=== PATIENT | male | born 2000 | race Caucasian/White ===

== ENCOUNTER 2020-01-19 19:44 | Emergency (ER) | payer OTHER, SELFPAY ==
--- NOTE | ~2020-01-19 | XR_ITS ---
EXAMINATION: XR knee LT 2V DATE: 01/19/2020 20:55 INDICATION: Left knee injury. Left knee pain. TECHNIQUE: 2 views of left knee were obtained. COMPARISON: None. FINDINGS: Bone alignment is normal. No fracture. Joint spaces are well maintained. There is a small k nee joint effusion. IMPRESSION: 1. Small left knee joint effusion. Reviewed, dictated and finalized at location A.
[2020-01-19 19:56] VITALS: BP 141/81; PULSE 94; RESP 13; TEMP 36.8; O2SAT 99
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
[2020-01-19 21:24] VITALS: PULSE 90; RESP 14; O2SAT 99
== END 2020-01-19 21:31 | disposition home or self-care (01) ==
PROVIDERS: Emergency Provider Emergency Medicine
DX: S86.912A Strain of unspecified muscle(s) and tendon(s) at lower leg level, left leg, initial encounter (principal); W17.89XA Other fall from one level to another, initial encounter
CPT/HCPCS: 73560; 99282; 99283

== ENCOUNTER 2020-05-01 18:46 | Emergency (ER) | payer OTHER, SELFPAY ==
[2020-05-01 18:55] VITALS: BP 138/72; PULSE 76; RESP 16; TEMP 36.9; O2SAT 97
--- NOTE | 2020-05-01 19:29 | ED.EYEPROB ---
HPI - Eye Problem General Chief complaint: Eye Problems Stated complaint: eye problem Source: patient Mode of arrival: ambulatory Limitations: no limitations History of Present Illness HPI Narrative: This 20-year-old was mowing around noon today when he felt a foreign body in his right eye. He wiped it out with resolution of his symptoms. Approximately 5-1/2 hours later, while taking a shower, he had acute pain in the right medial eye. The pain is made worse by closing his eye. He has no blurring or photophobia. The pain is sharp, moderate- severe. There is no blurring. Related Data Allergies Allergy/AdvReac Type Severity Reaction Status Date / Time Penicillins Allergy Intermediate Verified 12/22/16 13:39 Review of Systems Eyes: Eyes: Reports no additional eye complaints PMFSH Past Medical History Medical History Patient denies medical problems Social History Social History Smoking status: Current every day smoker Alcohol intake: never Substance use type: marijuana Exam Eyes: Pupils: Equal, round and reactive pupils present Other: Right diffuse conjunctival injection. EOMI. EOMI 20/20 OD, 20/25 OS obtained after anesthetic applied. Cornea is clear with a sharp light reflex. Fluorescein exam revealed no corneal uptake. Upper eyelid inverted, upper and lower palpebral conjunctiva thoroughly inspected Course Course Emergency Course: Pt. held eyelids apart because of pain when his eyelids are closed. Pt's external lid, eyelid margin, palpebral and bulbar conjunctiva repeatedly examined. No other findings then what is described above. Vital Signs Vital signs: Vital Signs Temperature 36.9 C 05/01/20 18:55 Pulse Rate 76 05/01/20 18:55 Respiratory Rate 16 05/01/20 18:55 Blood Pressure 138/72 05/01/20 18:55 Pulse Oximetry 97 05/01/20 18:55 Temperature 36.9 C 05/01/20 18:55 Pulse Rate 76 05/01/20 18:55 Respiratory Rate 17 05/01/20 19:45 Blood Pressure 138/72 05/01/20 18:55 Pulse Oximetry 97 05/01/20 18:55 MDM - Eye Problem MDM Narrative Medical decision making narrative: Medial eye pain/ no photophobia or blurring. Hx of foreign body in eye 4 - 5 hours before onset of this pain. No evidence of cornea abrasion or foreign body. I explained to the patient he may have had a foreign body which caused injury and now is gone. Pain markedly improved with topical anesthetic. Pt. declined going to an e.d. who has an posting machine operator available. He does not have his license. Pt. instructed to be seen by an eye doctor tomorrow if pain persists. [place] rx written to get him through the [facility]. Differential Diagnosis Differential diagnosis: Likely corneal abrasion and other (foreign body. ) Discharge Plan Discharge Clinical Impression: Acute right eye pain Patient Disposition: Home, Self-Care Condition: Stable Instructions: Eye Foreign Body (ED) Additional Instructions: If pain persists, see an jig fitter or posting machine operator 05/02/20 [facility] [phone] [address] [place] Prescriptions: New hydrocodone-acetaminophen [[place]] 5-325 mg tablet 1 tablet PO Q4H PRN (Reason: pain) Qty: 6 RF: 0 hydrocodone-acetaminophen [[place]] 5-325 mg tablet 1 tablet PO Q4H PRN (Reason: pain) Qty: 6 RF: 0 Follow-up/Referrals: UNKNOWN,DOCTOR [Primary Care Provider] - Time of Disposition: 19:34 Discharge Date/Time: 05/01/20 19:45
[2020-05-01] MEDS: IBUPROFEN 400 MG TABLET PO (19:34)
[2020-05-01 19:45] VITALS: RESP 17
== END 2020-05-01 19:45 | disposition home or self-care (01) ==
PROVIDERS: Emergency Provider Family Medicine
DX: H57.11 Ocular pain, right eye (principal)
CPT/HCPCS: 99281; 99283; A9270

== ENCOUNTER 2021-06-08 11:30 | Emergency (ER) | payer OTHER, SELFPAY ==
--- NOTE | ~2021-06-08 | CT_ITS ---
EXAMINATION: CT abdomen pelvis w con DATE: 06/08/2021 14:06 INDICATION: Right lower quadrant pain with TECHNIQUE: Computed tomography (CT) of the abdomen and pelvis was performed with 100 cc Omnipaque 350 intravenous contrast. The dose-length product was 314.08 mGy-cm. Automated exposure control and iter ative reconstruction technique were employed. COMPARISON: CT dated 08/20/2019 FINDINGS: Lung bases are unremarkable. Heart size normal. No significant pleural or pericardial effus ion. There is a large amount of gas in the colon. No significant small bowel dilation. No definite ob struction. No significant vascular abnormality. The liver, spleen, pancreas, adrenal glands and kidneys are unremarkable. Gallbladder is present. No free air. Normal appendix. No free air or free fluid. IMPRESSION: 1. Prominent gas throughout the colon, nonspecific. No definite obstruction. Reviewed, dictated and finalized at location A.
[2021-06-08 12:49] VITALS: BP 158/81; PULSE 59; RESP 20; TEMP 36.8; O2SAT 99
[2021-06-08 13:34] LABS: Basophils Absolute Auto 0.07 K/mm3 (0.00-0.10); Basophils Percent Auto 0.8 % (0.0-1.0); Eosinophils Absolute Auto 0.05 K/mm3 (0.02-0.50); Eosinophils Percent Auto 0.6 % (1.0-6.0); Hematocrit 45.3 % (40.0-54.0); Hemoglobin 15.4 g/dL (14.0-18.0); Immature Granulocyte Absolute 0.04 K/mm3 (0.00-0.00); Immature Granulocyte Percent A 0.5 % (0.0-0.0); Lymphocytes Absolute Auto 1.26 K/mm3 (1.10-4.50); Lymphocytes Percent Auto 14.7 % (18.0-42.0); Mean Corpuscular Hemoglobin 30.7 pg (27.0-31.0); Mean Corpuscular Volume 90.4 fL (78.0-102.0); Mean Platelet Volume 9.8 fl (8.7-11.0); Monocytes Absolute Auto 0.58 K/mm3 (0.10-0.90); Monocytes Percent Auto 6.8 % (2.0-11.0); Neutrophils Absolute Auto 6.6 K/mm3 (1.7-7.2); Neutrophils Percent Auto 76.6 % (50.0-70.0); Platelet Count Result 296 K/mm3 (150-420); Red Blood Count 5.01 M/mm3 (4.70-6.10); White Blood Count 8.6 K/mm3 (4.8-10.8)
[2021-06-08] MEDS: SODIUM CHLORIDE 0.9% IV 1,000 ML 999 ML IV CONT (13:38)
[2021-06-08] MEDS: ONDANSETRON INJ 4 MG/2 ML VIAL IV PUSH (13:39)
[2021-06-08] MEDS: MORPHINE SULFATE (*CRX) 2 MG/ML INJ IV PUSH (13:39)
[2021-06-08] MEDS: PANTOPRAZOLE SODIUM IV 40 MG VIAL IV PUSH (13:39)
[2021-06-08 13:49] LABS: Alanine Aminotransferase 36 U/L (16-63); Albumin Level 4.2 g/dL (3.4-5.0); Alkaline Phosphatase 111 U/L (46-116); Anion Gap 10 mmol/L (8-16); Aspartate Amino Transferase 19 U/L (15-37); Bilirubin,Total 0.6 mg/dL (0.00-1.00); Blood Urea Nitrogen 7 mg/dL (7-18); Calcium 8.9 mg/dL (8.5-10.1); Carbon Dioxide 28 mmol/L (21-32); Chloride 104 mmol/L (98-108); Estimated CRCL calculation 99 ml/min; Estimated Glomerular Filt Rate > 60; Ethanol < 3 mg/dL (0-6); Glucose 94 mg/dL (70-99); Lipase 74 U/L (73-393); Osmolality Calculated 292 mOsm/kg (285-295); Potassium 3.9 mmol/L (3.5-5.1); Sodium 142 mmol/L (136-145)
[2021-06-08 14:25] LABS: Add Urine Microscopic? NO; Appearance Urine Clear (Clear); Bilirubin Urine Negative (Negative); Blood Urine Negative (Negative); Color Urine Light Yellow (Yellow); Glucose Urine UA Negative (Negative); Ketones Urine Negative (Negative); Leukocyte Esterase Ur Negative (Negative); Nitrate Urine Negative (Negative); Protein Urine Negative (Negative); Urobilinogen Urine 0.2 mg/dL (0.2-1.0)
[2021-06-08 14:53] LABS: Amphetamine Screen Urine Negative (Negative); Barbiturate Screen Urine Negative (Negative); Benzodiazepines Screen Urine Negative (Negative); Cannabinoid Screen Urine Positive (Negative); Cocaine Screen Urine Negative (Negative); Methadone Screen Urine Negative (Negative); Opiate Screen Urine Positive (Negative); Phencyclidine Screen Urine Negative (Negative)
--- NOTE | 2021-06-08 15:17 | ED.GENADULT ---
HPI - General Adult General Chief complaint: Unspecified Stated complaint: hot,vomiting Time Seen by Provider: 06/08/21 11:45 Source: patient and RN notes reviewed Mode of arrival: ambulatory Limitations: no limitations History of Present Illness complaint: mild epigastric abdominal pain, nausea and vomiting x this am. no fever or Onset (ago): hour(s) (2) Location: abdomen Radiation: non-radiation Severity: mild Severity scale (1-10): 3 Quality: aching and dull Pain Consistency: constant Relieving factors: none Exacerbating factors: none Associated symptoms: nausea/vomiting Related Data Allergies Allergy/AdvReac Type Severity Reaction Status Date / Time Penicillins Allergy Unknown Verified 06/08/21 13:08 Review of Systems Review of Systems: All systems reviewed & are unremarkable except as noted in HPI and below Gastrointestinal: Gastrointestinal: Reports abdominal pain and Reports nausea PMFSH Past Medical History Medical History (Updated 06/08/21 @ 15:48 by Rosa Beasley MD) Gastritis Exam Const: General: cooperative, no acute distress and well developed Nutritional Appearance: well nourished Orientation/consciousness: oriented to person and patient oriented x3 Limitations: no limitations HENMT: Head: normal to inspection, normocephalic and atraumatic Ears: hearing grossly normal bilaterally and external ears normal General nose exam: Normal external nose present and Normal nares present Mouth: Yes oropharynx normal and Yes moist mucous membranes Eyes: General: appearance normal, both eyes and all related structures Eyelids: eyelids normal Conjunctivae: conjunctivae normal Sclera: sclerae normal Cornea: corneas normal Pupils: Equal, round and reactive pupils present EOM: EOMs intact bilaterally Neck: Neck: normal visual inspection, full ROM and no lymphadenopathy Chest: Chest palpation & inspection: normal inspection of the chest Resp: Effort & Inspection: normal respiratory effort Auscultation: clear to auscultation bilaterally Cardio: Jugular venous distension: no JVD Rate: regular rate Rhythm: regular rhythm Heart sounds: S1 normal heart sound present and S2 normal heart sound present Peripheral pulses: Peripheral pulses 2+ throughout and brachial pulses present GI: Inspection: normal to inspection GI Palp: Yes Soft to palpation (non-tender.) Percussion: Yes normal to percussion Auscultation: normal bowel sounds : General: Yes bimanual renal exam normal bilaterally and Yes no CVA tenderness Back/Spine/Pelvis: Back: no CVA tenderness Thoracic/Lumbar Spine: thoracic and lumbar spine normal to inspection Skin: General skin exam: normal color and no rashes or lesions noted Rashes: no rashes Wounds: no wounds Hair: normal Neuro: General: patient oriented x3, gait normal, no focal motor deficits and CN's II-XI intact bilaterally Cranial nerves: Yes CN's II-XII intact bilaterally Cognition (Neuro): normal cognition Speech: normal speech Gait exam (Neuro): Normal gait present Motor exam (neuro): 5/5 motor strength present throughout Extrem: General: normal to inspection, full ROM and capillary refill normal Psych: Appearance: grossly normal and well kempt Speech and movement: Normal speech and movement present Affect: normal affect Thought content: Yes Normal thought content present and No Phobia(s) present Insight: Good insight present (Psych) and no other Judgement: Good judgement present (Psych) Course Course Emergency Course: Pt was stable and pain-free in the ED. no acute GI loss Reevaluation(s) Reevaluation #1: No GI loss in the ED. less painful in the ED Date: 06/08/21 Time: 13:46 Vital Signs Vital signs: Vital Signs Temperature 36.8 C 06/08/21 12:49 Pulse Rate 59 L 06/08/21 12:49 Respiratory Rate 20 06/08/21 12:49 Blood Pressure 158/81 H 06/08/21 12:49 Pulse Oximetry 99 06/08/21 12:49 Temperature 36.8 C 06/08/21 12:49 Pulse Rate
[2021-06-08 15:56] VITALS: BP 144/94; PULSE 48; RESP 20; TEMP 36.4; O2SAT 99
== END 2021-06-08 16:03 | disposition home or self-care (01) ==
PROVIDERS: Emergency Provider Emergency Medicine
DX: K29.70 Gastritis, unspecified, without bleeding (principal)
CPT/HCPCS: 36415; 74177; 80053; 80307; 81003; 83690; 85025; 96361; 96374; 96375; 99283; 99284; C9113; J2270; J2405; J7030; Q9967

== ENCOUNTER 2021-06-25 07:39 | Outpatient (CLI) | payer OTHER, SELFPAY ==
--- NOTE | ~2021-06-25 | US_ITS ---
US abdomen limited DATE: 06/25/2021 08:06 INDICATION: Right abdominal pain TECHNIQUE: Real-time imaging of liver, pancreas, gallbladder COMPARISON: 06/08/2021 CT abdomen pelvis FINDINGS: No hepatic mass lesion is evident. Normal hepatopedal portal venous flow direction. No gallstones or gallbladder wall thickening or pericholecystic fluid. The common bile duct measures 3.5 mm, normal. Negative sonographic Cannon's sign. The pancreas is obscured by bowel gas pattern appears normal on 06/08/2021 CT abdomen pelvis examinati on. IMPRESSION: Negative examination Reviewed, dictated and finalized at Location A. Reviewed, dictated and finalized at location A. IMPRESSION: Negative examination
== END 2021-06-25 07:40 | disposition home or self-care (01) ==
LOC: CHSIMG 07:40
PROVIDERS: PCP Family Medicine; Visit Provider Family Medicine
DX: K80.50 Calculus of bile duct without cholangitis or cholecystitis without obstruction (principal)
CPT/HCPCS: 76705

== ENCOUNTER 2023-01-12 18:56 | Emergency (ER) | payer OTHER, SELFPAY ==
[2023-01-12 19:00] VITALS: BP 125/70; PULSE 78; RESP 18; TEMP 37.1; O2SAT 100
--- NOTE | 2023-01-12 19:11 | ED.URI ---
HPI - URI/Sore Throat General Chief Complaint: Upper Respiratory Infection Stated Complaint: cough Time Seen by Provider: 01/12/23 19:03 Source: patient Mode of arrival: ambulatory Limitations: no limitations History of Present Illness HPI Narrative: this is a 22-year-old male that presents with 2 day history of cough with nasal congestion and postnasal drip with frontal and maxillary sinus pressure with bilateral ear pressure cough is mildly productive of yellow sputum with some no shortness of breath no audible wheezing no sore throat no nausea vomiting or abdominal pain with no fever chills. MD elicited complaint: cough, nasal congestion and sinus pain Onset (ago): day(s) Consistency: constant Severity: mild Description of mucous: yellow Related Data Home Medications Medication Instructions Recorded Confirmed No Home Medications 01/12/23 01/12/23 Allergies Allergy/AdvReac Type Severity Reaction Status Date / Time Penicillins Allergy Unknown Unknown Verified 01/12/23 18:59 Review of Systems Review of Systems: All systems reviewed & are unremarkable except as noted in HPI and below PMFSH Past Medical History Medical History Gastritis Surgical History Surgical History No history of previous surgery Social History Social History Smoking status: Former smoker Alcohol intake: never Substance use type: marijuana Living arrangements: with family Occupation/Education: occupation Exam Const: General: healthy appearing Nutritional Appearance: well nourished Orientation/consciousness: patient oriented x3 Limitations: no limitations HENMT: Other: Frontal and maxillary sinus tenderness with palpation with a postnasal drip bilateral ear pressure and dullness. Eyes: Conjunctivae: conjunctivae normal Chest: Chest palpation & inspection: normal inspection of the chest Resp: Effort & Inspection: normal respiratory effort Cardio: Rate: regular rate Rhythm: regular rhythm GI: GI Palp: Yes Soft to palpation Auscultation: normal bowel sounds : General: Yes bladder normal to palpation Skin: General skin exam: normal color Rashes: no rashes Wounds: no wounds Neuro: General: patient oriented x3 Extrem: General: normal to inspection Psych: Mental Status: mental status grossly normal Affect: normal affect Course Course Emergency Course: After examination of patient patient has some sinus congestion and drainage and will treat with some antibiotics for sinus infection. Vital Signs Vital signs: Vital Signs Temperature 37.1 C 01/12/23 19:00 Pulse Rate 78 01/12/23 19:00 Respiratory Rate 18 01/12/23 19:00 Blood Pressure 125/70 01/12/23 19:00 Pulse Oximetry 100 01/12/23 19:00 Oxygen Delivery Room Air 01/12/23 19:00 Temperature 37.1 C 01/12/23 19:00 Pulse Rate 78 01/12/23 19:00 Respiratory Rate 18 01/12/23 19:00 Blood Pressure 125/70 01/12/23 19:00 Pulse Oximetry 100 01/12/23 19:00 Oxygen Delivery Room Air 01/12/23 19:00 Critical Care Time Critical Care Time Critical Care Time: No Discharge Plan Discharge Clinical Impression: Sinusitis Patient Disposition: Home, Self-Care Condition: Stable Instructions: Antibiotic Form, Sinusitis (ED) Additional Instructions: Take medicine as prescribed, and can take Claritin 10mg [id number] daily for 1 week along with antibiotics and follow up with primary if symptoms persist or worsen. Prescriptions: No Action No Home Medications Follow-up/Referrals: Paulino Tijerina DO [Primary Care Provider] - Time of Disposition: 19:14
[2023-01-12] MEDS: AZITHROMYCIN 250 MG TABLET 500 MG PO (19:15)
== END 2023-01-12 19:27 | disposition home or self-care (01) ==
LOC: CHSED 19:18
PROVIDERS: Emergency Provider Emergency Medicine; PCP Family Medicine
DX: J32.9 Chronic sinusitis, unspecified (principal); Z87.891 Personal history of nicotine dependence
CPT/HCPCS: 99283; A9270

== ENCOUNTER 2023-07-16 19:17 | Emergency (ER) | payer OTHER, SELFPAY ==
--- NOTE | ~2023-07-16 | XR_ITS ---
EXAMINATION: XR chest 2V Exam Date/Time: 07/16/2023 19:20 CDT HISTORY: COUGH X 2 DAYS. Comparison: 08/20/2019. RESULT: Lines, tubes, and devices: None. Lungs and pleura: Clear. Cardiomediastinal silhouette: Stable. Other: No acute osseous or upper abdominal finding. Chronic mild anterior wedging of midthoracic jose alfredo tebral bodies. IMPRESSION: No acute cardiopulmonary process. Reviewed, dictated and finalized at location K.
[2023-07-16 19:19] VITALS: BP 142/85; PULSE 90; RESP 18; TEMP 36.6; O2SAT 95
--- NOTE | 2023-07-16 19:56 | ED.URI ---
HPI - URI/Sore Throat General Chief Complaint: Upper Respiratory Infection Stated Complaint: cough Time Seen by Provider: 07/16/23 19:19 Source: patient Mode of arrival: ambulatory Limitations: no limitations History of Present Illness HPI Narrative: patient is a 23-year-old male with a sore throat, cough, congestion and shortness of breath with the cough with some pleuritic type chest pains as well too. MD elicited complaint: cough, sore throat and nasal congestion Onset (ago): day(s) (3) Consistency: constant Severity: moderate Pain scale (0-10): 4 Description of mucous: clear and yellow Able to tolerate fluids by mouth: Yes Exacerbating factors: nothing Relieving factors: nothing Associated symptoms: nasal congestion, sore throat, cough, chest pain and shortness of breath Treatments prior to arrival: none Related Data Allergies Allergy/AdvReac Type Severity Reaction Status Date / Time Penicillins Allergy Unknown Unknown Verified 07/16/23 19:32 Review of Systems Review of Systems: All systems reviewed & are unremarkable except as noted in HPI and below Constitutional: Constitutional: Reports no additional constitutional complaints Eyes: Eyes: Reports no additional eye complaints ENT: Reports system reviewed and no additional complaints, except as documented Cardiovascular: Cardiovascular: Reports no additional cardiovascular complaints Respiratory: Respiratory: Reports no additional respiratory complaints Gastrointestinal: Gastrointestinal: Reports no additional gastrointestinal complaints Genitourinary: Genitourinary: Reports no additional male genitourinary complaints Musculoskeletal: Musculoskeletal: Reports no additional musculoskeletal complaints Integumentary/Breasts: Skin/Breast: Reports system reviewed and no additional complaints, except as docu Neurologic: Reports system reviewed and no additional complaints, except as documented Psychiatric: Psychiatric: Reports no additional psychiatric complaints Endocrine: Endocrine: Reports no additional endocrine complaints Hematologic/Lymphatic: Hematologic/Lymphatic: Reports no additional hematologic/lymphatic complaints Allergic/Immunologic: Allergic/Immunologic: Reports no additional allergic/immunologic complaints PMFSH Past Medical History Medical History Gastritis Surgical History Surgical History No history of previous surgery Social History Social History Smoking status: Former smoker Alcohol intake: never Substance use type: marijuana Living arrangements: with family Occupation/Education: occupation Exam Const: General: healthy appearing and no acute distress Nutritional Appearance: well nourished Orientation/consciousness: patient oriented x3 HENMT: Head: normal to inspection Ears: external ears normal Face/Nose/Sinus: Normal external nose present Other: Posterior oropharynx is red and inflamed of the tonsils with crypts on the right greater than left Eyes: Conjunctivae: conjunctivae normal Pupils: Equal, round and reactive pupils present EOM: EOMs intact bilaterally Neck: Neck: normal visual inspection Chest: Chest palpation & inspection: normal inspection of the chest Resp: Effort & Inspection: normal respiratory effort Auscultation: clear to auscultation bilaterally Cardio: Rate: regular rate Rhythm: regular rhythm Heart sounds: no murmurs GI: GI Palp: Yes Soft to palpation, No Tenderness to palpation present (GI), No Guarding due to palpation present (GI) and No Rigid due to palpation Auscultation: normal bowel sounds : General: Yes bladder normal to palpation Back/Spine/Pelvis: Back: no CVA tenderness Skin: General skin exam: normal color Rashes: no rashes Wounds: no wounds Neuro: General: patient oriented x3, moves all ext
[2023-07-16 20:07] VITALS: PULSE 95; RESP 18; O2SAT 96
[2023-07-16] MEDS: ALBUTEROL SULFATE NEB 2.5 MG/3 ML INH INHALATION (20:11)
[2023-07-16 20:12] VITALS: PULSE 92; RESP 18; O2SAT 96
[2023-07-16 20:40] LABS: Strep Group A RT-PCR NOT DETECTED (Negative)
[2023-07-16] MEDS: LIDOCAINE HCL 2% VISC SOLN 15 ML UDC PO (20:40)
[2023-07-16 20:52] LABS: Influenza A QL RT-PCR Negative (Negative); Influenza B QL RT-PCR Negative (Negative); SARS-CoV-2 RNA PCR Negative (Negative)
[2023-07-16 20:56] LABS: RSV RNA, RT-PCR Negative (Negative)
[2023-07-16] MEDS: AZITHROMYCIN 250 MG TABLET 500 MG PO (21:09)
[2023-07-16] MEDS: predniSONE 20 MG TABLET PO (21:10)
== END 2023-07-16 21:22 | disposition home or self-care (01) ==
PROVIDERS: Emergency Provider Emergency Medicine; PCP Family Medicine
DX: J40 Bronchitis, not specified as acute or chronic (principal); J02.9 Acute pharyngitis, unspecified; Z87.891 Personal history of nicotine dependence; Z20.822 Contact with and (suspected) exposure to COVID-19
CPT/HCPCS: 71046; 87637; 87651; 94640; 99283; A9270; J7512

== ENCOUNTER 2024-06-29 23:25 | Emergency (ER) | payer SELFPAY ==
[2024-06-29 23:29] VITALS: BP 177/111; PULSE 60; RESP 18; TEMP 36.7; O2SAT 98
[2024-06-29 23:32] VITALS: BP 169/114
--- NOTE | 2024-06-29 23:36 | ED.DENTAL ---
HPI - Dental/Oral General Chief complaint: Dental/Oral Stated complaint: dental pain Time Seen by Provider: 06/29/24 23:34 Source: patient Mode of arrival: ambulatory Limitations: no limitations History of Present Illness HPI Narrative: This is a 24-year-old female with history broken molars and dental caries who presents to the emergency department, he on a significant left-sided return in the past several days. The patient states he has had this pain before and has required antibiotics. He was seen by a dentist, though is unable to afford further treatment. He complains 9/10 dull pain but denies difficulty breathing, difficulty swallowing, weakness or numbness. He has no other complaints at this time. Related Data Allergies Allergy/AdvReac Type Severity Reaction Status Date / Time Penicillins Allergy Unknown Unknown Verified 06/29/24 23:30 Review of Systems Review of Systems: All systems reviewed & are unremarkable except as noted in HPI and below PMFSH Past Medical History Medical History (Updated 06/29/24 @ 23:43 by Zeus Chery MD) Dental caries Gastritis Surgical History Surgical History No history of previous surgery Social History Social History Smoking status: Former smoker Alcohol intake: never Substance use type: marijuana Living arrangements: with family Occupation/Education: occupation Exam Narrative: GENERAL: Well-developed, well-nourished, and in no acute distress. HEAD: Normocephalic, atraumatic. mild left-sided facial swelling at the angle of Hiro EYES: PERRLA and EOMI. ENT: Nares clear, no rhinorrhea or epistaxis. Mucous membranes moist. Oropharynx without tonsillar hypertrophy exudate or other lesions. There are dental caries noted at tooth #17 erythema and swelling, consistent with dental abscess. The right TM appears pearly mills and nonbulging. The left TM appears erythematous is bulging slightly place fluid in the middle ear. NECK: Supple. No adenopathy or masses. No carotid bruits or JVD CHEST: Clear to auscultation. No respiratory distress. No wheezes rales or rhonchi HEART: Regular rate and rhythm. No murmur heard. Normal peripheral pulses. EXTREMITIES: Normal range of motion. No edema. SKIN: Warm, dry, no rash. NEURO: Alert and oriented x3. No focal deficit. Moving all 4 limbs spontaneously PSYCH: Normal mood and affect. Course Course Emergency Course: 23:38 - The patient's exam is consistent dental abscess. Will treat with IM Toradol and discharge with [place] and oral antibiotics as well as low-cost dental resources. I discussed the findings and recommendations with the patient. Discussed return and emergency precautions including signs/symptoms of deep space neck infection and airway compromise. The patient voiced understanding and agreement with the plan. All questions answered to his satisfaction. Vital Signs Vital signs: Vital Signs Temperature 98.1 F 06/29/24 23:29 Pulse Rate 60 06/29/24 23:29 Respiratory Rate 18 06/29/24 23:29 Blood Pressure 177/111 H 06/29/24 23:29 Pulse Oximetry 98 06/29/24 23:29 Oxygen Delivery Room Air 06/29/24 23:29 Temperature 98.1 F 06/29/24 23:29 Pulse Rate 60 06/29/24 23:29 Respiratory Rate 18 06/29/24 23:29 Blood Pressure 169/114 H 06/29/24 23:32 Pulse Oximetry 98 06/29/24 23:29 Oxygen Delivery Room Air 06/29/24 23:29 MDM - Dental/Oral MDM Narrative Medical decision making narrative: plan: pain control, oral antibiotics, dental follow-up Differential Diagnosis Differential diagnosis: Likely dental caries, toothache, dental abscess and other Discharge Plan Discharge Clinical Impression: Dental abscess, Toothache Patient Disposition: Home, Self-Care Condition: Stable Instructions: Antibiotic Form, Dental Abscess (ED) Additional Instructions: Juan
[2024-06-29] MEDS: KETOROLAC (*BKC) 60 MG/2 ML VIAL IM (23:42)
[2024-06-30 00:06] VITALS: BP 158/99
== END 2024-06-30 00:06 | disposition home or self-care (01) ==
PROVIDERS: Emergency Provider Preventive Medicine Aerospace Medicine
DX: K04.7 Periapical abscess without sinus (principal); Z87.891 Personal history of nicotine dependence
CPT/HCPCS: 96372; 99283; J1885

== ENCOUNTER 2025-09-01 10:59 | Emergency (ER) | payer SELFPAY ==
[2025-09-01 11:12] VITALS: BP 119/75; PULSE 76; RESP 16; TEMP 36.8; O2SAT 100
[2025-09-01 12:01] LABS: EDSTREPNEGPOS1 Negative (Negative)
--- NOTE | 2025-09-01 12:25 | ED.URI ---
HPI - URI/Sore Throat General Chief Complaint: Upper Respiratory Infection Stated Complaint: Strep Symptoms Time Seen by Provider: 09/01/25 11:22 Source: patient and RN notes reviewed Mode of arrival: ambulatory Limitations: no limitations History of Present Illness HPI Narrative: 25-year-old male patient presents today complaining of sore throat since this morning. States he had some drainage in the back of his throat when he woke up this morning and cough to relieve it. The sputum that came out had some blood tinge to it. States he does not have a cough or any additional symptoms to include nasal congestion, rhinorrhea, shortness of breath, fever. Currently rates his sore throat 03/27. No OTC treatment prior to arrival. Related Data Home Medications ?Medication ?Instructions ?Recorded ?Confirmed ?Last Taken ?Type No Home Medications 09/01/25 09/01/25 Unknown History Allergies Allergy/AdvReac Type Severity Reaction Status Date / Time Penicillins Allergy Unknown Unknown Verified 09/01/25 11:06 [facility] Past Medical History Medical History Dental caries Gastritis Surgical History Surgical History No history of previous surgery Social History Social History Smoking status: Former smoker Alcohol intake: never Substance use type: marijuana Living arrangements: with family Occupation/Education: occupation Comments At time of signature, I have reviewed and agree with nursing past medical, surgical, social and family history unless otherwise noted. Please see nursing chart for further information. There is no relevant family history pertinent to the presenting complaint Exam Narrative: GENERAL: Well-appearing, well-nourished, and in no acute distress. HEAD: Normocephalic, atraumatic. EYES: EOMI. No redness or drainage. Conjunctivae normal. ENT: Mucous membranes pink and moist. Nares clear. No rhinorrhea. TMs normal bilaterally. Throat mildly erythematous. Tonsils 1 to 2+ with some scant white exudate. Uvula midline. NECK: Normal AROM. Supple. No lymphadenopathy. CHEST: No respiratory distress. Clear to auscultation. HEART: Regular rate and rhythm. No murmur appreciated. EXTREMITIES: Normal range of motion. No edema. SKIN: Warm, dry, no rash. Capillary refill normal. Normal skin turgor. NEURO: No focal deficits. Alert and oriented x3. Gait steady. PSYCH: Normal affect. No signs of depression or anxiety. Course Course Level of Care: Express Care Visit Vital Signs Vital signs: Vital Signs Temperature 98.3 F 09/01/25 11:12 Pulse Rate 76 09/01/25 11:12 Respiratory Rate 16 09/01/25 11:12 Blood Pressure 119/75 09/01/25 11:12 Pulse Oximetry 100 09/01/25 11:12 Temperature 98.3 F 09/01/25 11:12 Pulse Rate 76 09/01/25 11:12 Respiratory Rate 16 09/01/25 11:12 Blood Pressure 119/75 09/01/25 11:12 Pulse Oximetry 100 09/01/25 11:12 Reviewed MDM MDM Narrative Medical decision making narrative: 25-year-old male patient presents today complaining of sore throat since this morning. States he had some drainage in the back of his throat when he woke up this morning and cough to relieve it. The sputum that came out had some blood tinge to it. States he does not have a cough or any additional symptoms to include nasal congestion, rhinorrhea, shortness of breath, fever. Currently rates his sore throat 7/10. No OTC treatment prior to arrival. Upon exam, patient has an erythematous throat with 1 to 2+ tonsils with white exudate. Rapid strep negative. Culture pending. Symptoms likely viral in etiology. Discussed [id number] medication use and duration of illness. No prescription medications indicated at this time. Anticipatory guidance given. Vital signs stable. Patient agrees with plan. Differential Diagnosis Differential Diagnosis: Strep throat, pharyngitis, tonsillitis, URI Lab Data Labs: Lab Results 09/01/25 Range/Units 11:29 POC Grp A Strep Screen Negative (Negative) Critical Care Time Critical Care Time Critical Care Time: No Discharge Plan Discharge Clinical Impression: Pharyngitis Qualifiers: Pharyngitis/tonsillitis etiology: unspecified etiology Qualified Code(s): J02.9 - Acute pharyngitis, unspecified Patient Disposition: Home Condition: Stable Instructions: Pharyngitis (ED) Additional Instructions: Your rapid strep swab was negative today at [facility]. You will be notified in a few days if the culture comes back positive for strep, and appropriate antibiotics will be called in for you at that time. Your symptoms are likely due to a viral illness, which is not treated with antibiotics. Viral symptoms can be present for up to 7-10 days. Take Tylenol or ibuprofen for fever or pain. Rest and stay hydrated. Follow up with your PCP in 7 days if symptoms are not improving. Go to the ER immediately if you have any difficulty breathing or swallowing. Patient Language: Serbian Prescriptions: No Action No Home Medications Follow-up/Referrals: PHYSICIAN,SPECIALIST FIELD ENGINEER [Primary Care Provider, Internal Medicine] Stand Alone Forms: Work/School Release IP Time of Disposition: 11:31
== END 2025-09-01 11:35 | disposition home or self-care (01) ==
PROVIDERS: Emergency Provider Nurse Practitioner
DX: J02.9 Acute pharyngitis, unspecified (principal); F12.90 Cannabis use, unspecified, uncomplicated; Z87.891 Personal history of nicotine dependence
CPT/HCPCS: 87081; 87880; 99213; G0463